=== PATIENT | female | born 1950 | race Caucasian/White ===

== ENCOUNTER → 2017-05-31 | Outpatient (REF) ==
[~2017-05-31] MED LIST: ANTIVERT/5050 MG PO; ASPIRIN 81M81 MG/TA2 PO; DRISTAN PO; PREMARIN 0.60.625 M1 PO; XANAX 0.5MG0.5 MG PO; XANAX XR1 MG PO
[2017-05-31 19:24] LABS: THYROID STIMULATING HORMONE 0.841 uIU/mL (0.465-4.680)
== END ==
LOC: ZLAB.WCH 18:45
PROVIDERS: Internal Medicine
DX: Z01.89 Encounter for other specified special examinations (principal)

== ENCOUNTER → 2018-03-01 | Outpatient (REF) | LOC: ZLAB.WCH 09:50 | DX: Z01.89 Encounter for other specified special examinations (principal) ==

== ENCOUNTER → 2018-07-19 | Outpatient (REF) | LOC: ZLAB.WCH 16:04 | DX: Z01.89 Encounter for other specified special examinations (principal) ==

== ENCOUNTER → 2019-02-21 | Outpatient (REF) | LOC: COL.CARD 08:29 | DX: I49.1 Atrial premature depolarization (principal) ==